=== PATIENT | female | born 1960 | race Caucasian/White ===

== ENCOUNTER 2020-02-11 06:19 | Day surgery (SDC) | payer SELFPAY ==
[2020-02-05 11:04] VITALS: BMI 23.1
[2020-02-11] MEDS ORDERED: MIDAZOLAM HCL 2 MG/2 ML SINGLE DOSE VIAL ONE ×2 (06:54)
[2020-02-11] MEDS ORDERED: PROPOFOL 20 ML ONE ×3 (06:54)
[2020-02-11] MEDS ORDERED: SEVOFLURANE 250 ML BTL ONE (06:57)
[2020-02-11] MEDS ORDERED: GLYCOPYRROLATE 0.2 MG/1 ML VIAL ONE (07:01)
[2020-02-11] MEDS ORDERED: LIDOCAINE HCL/PF 2% SDV 5ML VIAL ONE (07:01)
[2020-02-11] MEDS ORDERED: ERYTHROMYCIN 0.5% OPHTHALMIC OINTMENT 3.5 GM TUBE ONE (07:24)
[2020-02-11] MEDS ORDERED: TETRACAINE 0.5% OPHTH SOLN 2 ML BOTTLE ONE (07:24)
[2020-02-11] MEDS ORDERED: POVIDONE-IODINE 5% OPHTHALMIC PREP 30 ML SOLUTION ONE (07:25)
[2020-02-11] MEDS ORDERED: LIDOCAINE 1%/EPI 1:100000 (20 ML MULTI DOSE VIAL) ONE (07:25)
[2020-02-11] MEDS ORDERED: ONDANSETRON 4 MG/2 ML VIAL ONE ×3 (07:28→10:04)
[2020-02-11] MEDS ORDERED: ceFAZolin SODIUM 1 GM VIAL ONE (07:57)
[2020-02-11] MEDS ORDERED: DEXAMETHASONE SOD PHOSPHATE 4 MG/1 ML VIAL ONE (08:11)
[2020-02-11] MEDS ORDERED: THROMBIN (RECOMBINANT) 5,000 UNIT VIAL TP ONE (08:28)
[2020-02-11] MEDS ORDERED: GUM MASTIC/STORAX/MSAL/ALCOHOL 1 DRP DROPSBTL MC ONE (10:13)
[2020-02-11] MEDS ORDERED: oxyCODONE HCL 5 MG TABLET PO PRN (10:38)
[2020-02-11] MEDS ORDERED: ONDANSETRON 4 MG/2 ML VIAL IVPUSH PRN (10:38)
[2020-02-11] MEDS ORDERED: LACTATED RINGERS SOLUTION 1,000 ML IV SCH (10:45)
[2020-02-11] MEDS ORDERED: oxyCODONE HCL 5 MG TABLET ONE (11:44)
[2020-02-11 11:57] VITALS: TEMP 98.2
[2020-02-11 13:34] VITALS: BP 112/68; PULSE 76
--- NOTE | 2020-02-11 13:53 | OP ---
DATE OF OPERATION: 02/11/2020 PREOPERATIVE DIAGNOSES: Fat prominence, bilateral lower lids, and mild dermatochalasis. POSTOPERATIVE DIAGNOSES: Fat prominence, bilateral lower lids, and mild dermatochalasis. PROCEDURE: Blepharoplasty, bilateral lower lids. SURGEON: Ami Rajput MD ANESTHESIA: LMA. COMPLICATIONS: None. ESTIMATED BLOOD LOSS: 3 mL. OPERATIVE REPORT: Patient brought to the operating room and placed on the operating room table. Vital signs were monitored by Anesthesia. Tetracaine was placed in both eyes. The timeout was performed. Intravenous sedation and then an LMA were placed and following the intravenous sedation and LMA 1 mL of 2% xylocaine with 1:100,000 epinephrine was injected in the nasal, central and temporal fat pockets down near the orbital rim bilaterally. Massage was done for hemostasis. Tear trough was marked bilaterally. The fat pads and fat prominence had been marked preoperatively in the holding area and then the anterior trough area was injected as well with this anesthetic for a total of about 8 mL. The patient was prepped and draped in the usual sterile fashion, exposing both eyes. The following procedures were performed bilaterally. There was minimal laxity of the lower lids and the lids were distracted with a [place] retractor and balloted upward with an eyelid plate. A transconjunctival incision was made just posterior to the fat from nasal to temporal across the eyelid and the fat was allowed to bulge forward. A 4-0 silk traction stitch was used to grab the conjunctival retractors in both eyelids and secure it to the forehead drape with a hemostat protecting the cornea throughout the case. Dissection was carried out bluntly down to the orbital rim with a Q-tip and using a [place] needle the nasal and central fat pockets were meticulously dissected out as pedicles and the inferior oblique was identified in both eyes and was protected and avoided and surgical manipulation. The inferior nasal orbital rim was identified with a Q-tip. The periosteum was incised with a [place] needle and then a subperiosteal dissection was carried out with a [place] periosteal elevator extending out beyond the tear trough from the medial canthal tendon down to the inferior orbital rim and this elevated the orbicularis, it from its attachments at the tear trough, nasojugal fold and creating a pocket for transposition of fat. The nasal and central fat pockets were then secured with a double-armed 4-0 Prolene which was passed through the skin under the orbicularis along the bony inferior orbital rim, exiting around the arcus marginalis inferonasally and passing it through in a continuous fashion pursestring through the nasal and central fat pads and this was brought back out through the same plane beyond the tear trough and each arm was passed through a Telfa sponge and eventually would be tied, resulting in fat transposition into the nasojugal fold. This was performed bilaterally. The fat pads were then meticulously sculpted nasally, centrally and temporally. The deep and superficial temporal fat pockets were identified and sculpted and hemostasis was achieved with the [place] needle. Antibiotic irrigation was used throughout the case until excellent contour of the lower lids was identified with gentle pressure on the globes and smooth contours and filling of the tear trough from the fat transpositions. The Prolenes were tied. Once this fat sculpting was complete and hemostasis was evident the conjunctiva was closed with 2 interrupted buried 6-0 plain suture, 1 nasally and 1 centrally, to realign the conjunctiva. At this point there was a small amount of dermatochalasis that was identified and therefore a skin pinch was performed just below the ciliary line in both eyelids. A small amount of skin was excised with a Nitin scissors and the skin was then closed with a running 6-0 nylon suture with plastic technique after hemostasis with the [place] needle. Erythromycin ointment was placed in both eyes and on the sutures of both lower lids and then Steri-Strips and Mastisol were used to stretch the eyelids superotemporally and placing a little pressure and a little elevation on the eyelids bilaterally and the patient was taken to the recovery room in stable condition following awakening from anesthesia. AMI RAJPUT M.D. LIZETT/[id number]
== END 2020-02-11 13:40 | disposition home or self-care (01) ==
LOC: FASU 06:19
PROVIDERS: ATTEND Ophthalmology
PROC: 080Q0ZZ Alteration of Right Lower Eyelid, Open Approach (ICD-10-PCS; 2020-02-11)
PROC: 080R0ZZ Alteration of Left Lower Eyelid, Open Approach (ICD-10-PCS; principal; 2020-02-11 08:16)
DX: H02.89 Other specified disorders of eyelid (principal); H02.832 Dermatochalasis of right lower eyelid; H02.835 Dermatochalasis of left lower eyelid
CPT/HCPCS: 94760